=== PATIENT | female | born 1990 | race Caucasian/White ===

== ENCOUNTER → 2016-12-15 23:18 | Observation (INO) ==
--- NOTE | 2016-12-15 20:18 | OB/GYN Progress Note ---
Date of Encounter: 12/15/16 Time of Encounter: 20:18 Objective - Latest Vital Signs Latest vital signs: Intake and Output 12/15/16 12/15/16 12/15/16 07:59 15:59 23:59 Other: Weight 79.379 kg Patient Weight 12/15/16 23:59 Weight 79.379 kg
[2016-12-15 23:11] LABS: Basophils % 0.1 %; Hematocrit 27.8 % (35.3-44.9); Hemoglobin 9.7 g/dL (11.5-15.4); Immature Granulocytes % 0.5 % (0-4); Lymphocytes # 1.2 K/mcL (0.6-4.6); Lymphocytes % 6.8 %; Mean Corpuscular HGB Conc 34.9 g/dL (31.6-35.5); Mean Corpuscular Hemoglobin 31.1 pg (28.0-33.3); Mean Corpuscular Volume 89.1 fL (83.0-100.0); Mean Platelet Volume 9.7 fL (9.4-12.4); Monocytes % 5.4 %; Platelet Count 223 K/mcL (140-400); Red Blood Count 3.12 M/mcL (3.82-4.97); Red Cell Distribution Width 13.6 % (11.5-14.5); Segmented Neutrophils % 87.2 %
[~2016-12-15 23:18] MED LIST: Methylergonovine 0.2 MG/ML AMPUL IM ONE; Oxytocin 20 units/ LR 1000 mL 20 UNIT/1,000 ML BAG IVC ONE; Oxytocin 20 units/ LR 1000 mL 20 UNIT/1,000 ML BAG IVC SCH
== END | disposition home or self-care (01) ==
LOC: 1NENULAB
PROVIDERS: ADMIT Student in an Organized Health Care Education/Training Program; ATTEND Student in an Organized Health Care Education/Training Program

== ENCOUNTER → 2019-03-03 08:20 | Observation (INO) ==
--- NOTE | 2019-03-03 06:02 | OB/GYN History & Physical ---
Date of Encounter: 03/03/19 Time of Encounter: 06:02 Assessment and Plan (1) Spontaneous Current visit: No Status: Acute 28 y/o with spontaneous miscarriage, heavy vaginal bleeding Plan: VE showed products of conception and continued vaginal bleeding from the os, I discussed with the patient that she needs to have a D&C to remove the products of conception, I explained the procedure and risk/benefits, consents signed, Before we proceed, I've asked the U/S tech to do an U/S. History of Present Illness HPI: Ms. Evans is a 28 year old female with a spontaneous miscarriage @ catrach[place] rebekah 14 weeks. This evening, she reports that she started bleeding and passed the fetus. She continued to bleed heavily with passage of large clots. She started feeling dizzy and shoprt of breadth so the merchandise flow associate broiught her into the ED. In the ED she was hypotensive and her Hgb was 10. She continued to have heavy vaginal bleeding with passage of clots in the ED and I was called. She had PP hemorrhage as well in 2017 after her last delivery. Past Med Surg Social Fam HX - Past Medical History Medical history: no medical history Psychiatric history: no psych history - Past Surgical History Surgical History: no surgical history - Social History Smoking Status: Never smoker Smokeless Tobacco Status: No Alcohol use: none Drug use: none Obstetrical History - Pregnancies : 4 Para: 3 Medications and Allergies Docusate Sodium [Colace] 100 mg PO BID 30 Days #60 capsule 03/03/19 [Rx] Ferrous Sulfate 325 mg PO BID #60 tablet 03/03/19 [Rx] Ibuprofen [Motrin] 600 mg PO Q6HR PRN #60 tab 03/03/19 [Rx] Methylergonovine Maleate [Methergine] 0.2 mg PO TID #21 tablet 03/03/19 [Rx] Allergy/AdvReac Type Severity Reaction Status Date / Time Sulfa (Sulfonamide Allergy Hives Verified 12/15/16 18:46 Antibiotics) Review of System OB All systems PM: reviewed and no additional remarkable complaints except as stated Results All other labs normal.
--- NOTE | 2019-03-03 06:04 | Anesthesia Evaluation PreOp ---
Date of Encounter: 03/03/19 Time of Encounter: 05:00 - Past History Planned Operation: D&C Cardiac History: Denies any Significant Hx Pulmonary History: Denies Any Significant HX PRICING SUPERVISOR History: Denies Any Significant HX Other Medical History: Denies Any Significant HX Anesthesia History: No Prior Anesthetic Complications : No Test: Negative Alcohol Use: none Drug use: none Medications and Allergies Allergy/AdvReac Type Severity Reaction Status Date / Time Sulfa (Sulfonamide Allergy Hives Verified 12/15/16 18:46 Antibiotics) - Meds/Allergy Pre-op Review Medications Reviewed: Yes Allergies Reviewed: Yes Beta Blockers on Current Med List: No Anesthesia Exam 108/78 88 16 Height: 5'4" NPO (# of Hours): water @0300 Pain Scale: 1 Pain Scale Used: Numeric (1 - 10) - HEENT Pupil (Motor): Pupils equal Mallampati: II Teeth: Normal Oral Opening: Greater than 3 - PRICING SUPERVISOR LOC: Oriented PRICING SUPERVISOR Motor: Normal RUE, Normal LUE, Normal RLE, Normal LLE, Normal Face PRICING SUPERVISOR Sensory: Normal: RUE, LUE, RLE, LLE, Face - Cardiac Rhythm: Regular Murmur: None - Pulmonary Breath Sounds: bilateral Clear Respiratory Effort: Symmetrical Anesthesia Assess/Plan ASA Score: 2, E Level of consciousness: Cooperative Anesthetic Plan: General (risks discussed, questions answered, consented) Monitoring Plan: Standard Monitors Recovery Plan: PACU
--- NOTE | 2019-03-03 06:08 | OB/GYN Procedure Note ---
OB-TAXATION CONSULTANT: Procedure - Diagnosis Date of procedure: 03/03/19 Pre-op diagnosis: Spontaneous miscarriage @ approx 14 weeks Post-op diagnosis: same - Procedure Procedure: Suction D&C Surgeon: Damon Gonzalez Was there an events assistant present: Yes Medical Scientific Liaison: Jcarlos Malik Anesthesia Type: General Estimated blood loss (cc): 150 Fluids: crystalloid Procedure Complications: none Specimens collected: products of conception Disposition: same day Findings: large amount of products of contraception noted through the cervix Narrative: The patient was taken to the operating room where a general anesthetic was administered. She was then positioned in the dorsal lithotomy position and prepped and draped in the normal sterile fashion. Once the anesthetic was found to be adequate, a weighted speculum was placed in the vagina. The anterior lip of cervix was grasped with a pair of ring forceps and due to the patient already being dilated approximately 2 cm, no cervical dilation was needed. A size 11 straight suction curette was used and connected to the suction and was placed in the cervix and a suction curettage was performed. Three passes were made with the suction curettage. Next, a curettage was performed obtaining a small amount of tissue and this was followed by fourth suction curettage. After the procedure, the pair of ring forceps was removed. The cervix seemed to be hemostatic. I placed Lola in the cervix. The weighted speculum was removed. The patient was given 0.25 mg of Methergine IM. The patient was taken from the operating room in stable condition after she was cleaned. She will be discharged today. She was given Methergine, Motrin, and doxycycline for her postoperative care.
--- NOTE | 2019-03-03 06:55 | Anesthesia Evaluation Post Op ---
Date of Encounter: 03/03/19 Time of Encounter: 06:54 - Lungs Lungs: Clear Ascult./Percussion - Airway Airway: Non-obstructed - Cardiovascular Regular Rate - Mental Status Mental Status: Alert & Oriented, Answers Appropriately - Pain Pain Scale: 2 Pain Scale used: Numeric (1 - 10) - Nausea Vomiting Nausea Vomiting: Not Present - Hydration Hydration: NPO - Discharge PostOp Status: Transfer Patient to floor (fully awake, VSS, no anesthetic complications)
[~2019-03-03 08:20] MED LIST changes: +*HR* FentaNYL (PF) 100 MCG/2 ML VIAL ONE; +*HR* Propofol 200 MG/20 ML VIAL IVP ONE; +*HR* Succinylcholine 200 MG/10 ML VIAL IVP ONE; +Dexamethasone 4 MG/ML VIAL ONE; +Doxycycline 100 MG CAPSULE PO ONE; +Lidocaine -MPF 2% 5 ML VIAL ONE; +Ondansetron 4 MG/2 ML VIAL ONE; -Oxytocin 20 units/ LR 1000 mL 20 UNIT/1,000 ML BAG IVC ONE; -Oxytocin 20 units/ LR 1000 mL 20 UNIT/1,000 ML BAG IVC SCH
== END | disposition home or self-care (01) ==
LOC: 1NENULAB
PROVIDERS: ADMIT Student in an Organized Health Care Education/Training Program; ATTEND Student in an Organized Health Care Education/Training Program

== ENCOUNTER 2020-06-25 22:23 | Inpatient (IN) ==
[2020-06-25 22:14] LABS: Basophils % 0.2 %; Eosinophils # 0.1 K/mcL (0.0-0.6); Hematocrit 36.9 % (35.3-44.9); Hemoglobin 12.1 g/dL (11.5-15.4); Immature Granulocytes % 0.4 % (0-4); Lymphocytes # 1.9 K/mcL (0.6-4.6); Lymphocytes % 20.5 %; Mean Corpuscular HGB Conc 32.8 g/dL (31.6-35.5); Mean Corpuscular Volume 91.3 fL (83.0-100.0); Mean Platelet Volume 9.3 fL (9.4-12.4); Monocytes # 0.6 K/mcL (0.0-1.3); Monocytes % 6.3 %; Neutrophils # 6.5 K/mcL (1.6-8.9); Platelet Count 238 K/mcL (140-400); Red Blood Count 4.04 M/mcL (3.82-4.97); Segmented Neutrophils % 71.6 %; White Blood Count 9.1 K/mcL (4.3-11.1)
[2020-06-25 22:18] LABS: Amphetamine Screen,Urine Negative ng/mL (Cutoff=1000); Barbiturate Screen,Urine Negative ng/mL (Cutoff=200); Benzodiazepines Screen,Urine Negative ng/mL (Cutoff=200); Cannabinoid Screen,Urine Negative ng/mL (Cutoff = 50); Cocaine Screen,Urine Negative ng/mL (Cutoff= 300); Opiate Screen,Urine Negative ng/mL (Cutoff=300); Phencyclidine Screen,Urine Negative ng/mL (Cutoff=25)
[~2020-06-25 22:23] MED LIST changes: +*HR* FentaNYL (PF) 100 MCG/2 ML VIAL IVP PRN; -*HR* FentaNYL (PF) 100 MCG/2 ML VIAL ONE; -*HR* Propofol 200 MG/20 ML VIAL IVP ONE; -*HR* Succinylcholine 200 MG/10 ML VIAL IVP ONE; +Azithromycin 500 MG in 0.9 % Sodium Chloride 250 ML IVPB ONE; -Dexamethasone 4 MG/ML VIAL ONE; -Doxycycline 100 MG CAPSULE PO ONE; +Famotidine 20 MG/2 ML VIAL IVP PRN; -Lidocaine -MPF 2% 5 ML VIAL ONE; +Lidocaine 1% 20 ML MDV INFILT PRN; -Methylergonovine 0.2 MG/ML AMPUL IM ONE; +Metoclopramide 10 MG/2 ML VIAL IVP PRN; +Naloxone 0.4 MG/ML INJ IVP PRN; +Ondansetron 4 MG/2 ML VIAL IVP PRN; -Ondansetron 4 MG/2 ML VIAL ONE; +Ringers Solution, Lactated 1,000 ML IVC SCH
[2020-06-26] MEDS ORDERED: Oxytocin 20 units/ LR 1000 mL 20 UNIT/1,000 ML BAG IVC ONE ×2 (00:54→02:19)
[2020-06-26] MEDS ORDERED: Acetaminophen 325 MG TABLET PO PRN (02:19)
[2020-06-26] MEDS ORDERED: Benzocaine/Menthol 56 GM AEROSOL SPRAY TP PRN (02:19)
[2020-06-26] MEDS ORDERED: Oxytocin 20 units/ LR 1000 mL 20 UNIT/1,000 ML BAG IVC SCH (02:19)
[2020-06-26] MEDS ORDERED: Measles/Mumps/Rubella Vacc 0.5 ML VIAL SQ PRN (02:19)
[2020-06-26] MEDS ORDERED: Ibuprofen 600 MG TABLET PO PRN (02:19)
[2020-06-26] MEDS ORDERED: Rho Immune Globulin 1,500 UNIT SYRINGE IM PRN (02:19)
[2020-06-26 07:39] VITALS: BP 97/63
[2020-06-26] MEDS ORDERED: Prenatal Vit/FA 1 EACH TABLET PO SCH (09:00)
== END 2020-06-26 11:18 | disposition home or self-care (01) | DRG 807 ==
LOC: 1NENULAB → 1NENUOBS 06-26 03:22
PROVIDERS: ADMIT Obstetrics & Gynecology; ATTEND Obstetrics & Gynecology

== ENCOUNTER 2022-04-17 11:48 | Inpatient (IN) ==
[2022-04-17] MEDS ORDERED: Famotidine 20 MG/2 ML VIAL IVP PRN (23:06)
[2022-04-17] MEDS ORDERED: Ondansetron 4 MG/2 ML VIAL IVP PRN (23:06)
[2022-04-17] MEDS ORDERED: Naloxone 0.4 MG/ML INJ IVP PRN (23:06)
[2022-04-17] MEDS ORDERED: *HR* FentaNYL (PF) 100 MCG/2 ML VIAL IVP PRN (23:06)
[2022-04-17] MEDS ORDERED: Metoclopramide 10 MG/2 ML VIAL IVP PRN (23:06)
[2022-04-17] MEDS ORDERED: *HR* Nalbuphine 10 MG/ML AMPUL IV PRN (23:06)
[2022-04-17] MEDS ORDERED: Ringers Solution, Lactated 1,000 ML IVC SCH (23:15)
[2022-04-17 23:20] LABS: Basophils % 0.3 %; Eosinophils % 0.6 %; Hematocrit 35.8 % (35.3-44.9); Hemoglobin 11.6 g/dL (11.5-15.4); Immature Granulocytes % 0.1 % (0-4); Lymphocytes # 1.6 K/mcL (0.6-4.6); Lymphocytes % 23.1 %; Mean Corpuscular HGB Conc 32.4 g/dL (31.6-35.5); Mean Corpuscular Hemoglobin 30.6 pg (28.0-33.3); Mean Corpuscular Volume 94.5 fL (83.0-100.0); Mean Platelet Volume 9.8 fL (9.4-12.4); Monocytes # 0.5 K/mcL (0.0-1.3); Monocytes % 6.4 %; Neutrophils # 4.9 K/mcL (1.6-8.9); Platelet Count 237 K/mcL (140-400); Red Blood Count 3.79 M/mcL (3.82-4.97); Red Cell Distribution Width 13.7 % (11.5-14.5); Segmented Neutrophils % 69.5 %; White Blood Count 7.1 K/mcL (4.3-11.1)
[2022-04-18] MEDS ORDERED: Oxytocin 30 UNIT/503 ML BAG IVC ONE ×2 (00:50→03:20)
[2022-04-18] MEDS ORDERED: Methylergonovine 0.2 MG/ML AMPUL IM ONE ×2 (02:19→16:16)
[2022-04-18] MEDS ORDERED: miSOPROStoL 100 MCG TABLET RC STA (02:20)
[2022-04-18] MEDS ORDERED: Lanolin 7 G OINT...G. TP PRN (04:52)
[2022-04-18] MEDS ORDERED: Benzocaine/Menthol 56 GM AEROSOL SPRAY TP PRN (04:52)
[2022-04-18] MEDS ORDERED: Oxytocin 30 UNIT/503 ML BAG IVC SCH (04:52)
[2022-04-18] MEDS ORDERED: Rho Immune Globulin 1,500 UNIT SYRINGE IM PRN (04:52)
[2022-04-18] MEDS ORDERED: Ondansetron ODT 4 MG TAB.RAPDIS SL PRN (04:52)
[2022-04-18] MEDS ORDERED: Measles/Mumps/Rubella Vacc 0.5 ML VIAL SQ PRN (04:52)
[2022-04-18] MEDS ORDERED: Ibuprofen 600 MG TABLET PO SCH (05:22)
[2022-04-18] MEDS ORDERED: Acetaminophen 325 MG TABLET PO SCH (05:30)
[2022-04-18 06:48] LABS: Basophils % 0.1 %; Eosinophils % 0.2 %; Hemoglobin 11.7 g/dL (11.5-15.4); Immature Granulocytes % 0.4 % (0-4); Lymphocytes # 1.7 K/mcL (0.6-4.6); Lymphocytes % 12.1 %; Mean Corpuscular HGB Conc 34.4 g/dL (31.6-35.5); Mean Corpuscular Hemoglobin 31.5 pg (28.0-33.3); Mean Corpuscular Volume 91.4 fL (83.0-100.0); Mean Platelet Volume 9.1 fL (9.4-12.4); Monocytes # 0.9 K/mcL (0.0-1.3); Monocytes % 6.2 %; Neutrophils # 11.6 K/mcL (1.6-8.9); Platelet Count 205 K/mcL (140-400); Red Blood Count 3.72 M/mcL (3.82-4.97); Red Cell Distribution Width 13.1 % (11.5-14.5)
[2022-04-18 06:49] LABS: White Blood Count 14.3 K/mcL (4.3-11.1)
[2022-04-18] MEDS: Prenatal Vit/FA 1 EACH TABLET PO SCH (08:47)
[2022-04-18] MEDS ORDERED: miSOPROStoL 100 MCG TABLET RC ONE (16:16)
[2022-04-18 16:18] VITALS: O2SAT 97
[2022-04-19 05:27] LABS: Basophils % 0.2 %; Eosinophils # 0.1 K/mcL (0.0-0.6); Eosinophils % 1.3 %; Hematocrit 33.9 % (35.3-44.9); Hemoglobin 11.1 g/dL (11.5-15.4); Immature Granulocytes % 0.4 % (0-4); Lymphocytes # 2.3 K/mcL (0.6-4.6); Lymphocytes % 25.2 %; Mean Corpuscular HGB Conc 32.7 g/dL (31.6-35.5); Mean Corpuscular Hemoglobin 30.7 pg (28.0-33.3); Mean Corpuscular Volume 93.9 fL (83.0-100.0); Mean Platelet Volume 9.4 fL (9.4-12.4); Monocytes # 0.5 K/mcL (0.0-1.3); Monocytes % 5.8 %; Platelet Count 212 K/mcL (140-400); Red Blood Count 3.61 M/mcL (3.82-4.97); Red Cell Distribution Width 13.3 % (11.5-14.5); Segmented Neutrophils % 67.1 %; White Blood Count 8.9 K/mcL (4.3-11.1)
[2022-04-19 07:00] VITALS: BP 92/53; PULSE 59; TEMP 97.7
[2022-04-19] MEDS: Prenatal Vit/FA 1 EACH TABLET PO SCH (08:09)
== END 2022-04-19 09:00 | disposition home or self-care (01) | DRG 806 ==
LOC: 1NENULAB 11:48 → 1NENUOBS 04-18 04:52
PROVIDERS: ADMIT Obstetrics & Gynecology; ATTEND Obstetrics & Gynecology